=== PATIENT | female | born 1940 | race Caucasian/White ===

== ENCOUNTER → 2017-09-09 | Day surgery (SDC) | payer MEDICARE, OTHER ==
[~2017-09-09] VITALS: Ht 170.2 cm; Wt 127.0 kg
[~2017-09-09] MED LIST: ATOR80TA PO; ATOR80TA45 PO; CALCTAB80 PO; CHLORHEXIDINE GLUCONATE 2 % 1 PACK (2 CLOTHS) TOPICAL PRN; COLA100C5 PO; FERR28TA PO; FERR325T18 PO; FLON0.053; FURO40TA PO; GABA600T PO; GLIP10TA6 PO; GLUC10TA3 PO; GLUCTAB6 PO; HYDR-3533 PO; HYDR12.56 PO; INSULIN HUMAN REGULAR 1,000 UNITS/10 ML VIAL SQ PRN; LACTATED RINGER'S 1000 ML IV PRN; LEVEMIR SQ; LIDOCAINE HCL 1% PF 5 ML SYRINGE OTHER ONE; LISI-363 PO; MACR100C PO; MAGN400T2 PO; METF-324 PO; METOPROLOL TARTRATE 25 MG TAB PO PRN; MIDAZOLAM HCL 2 MG/2 ML VIAL ONE; MONT10 PO; MONT10TA4 PO; NOVOLOGP2 SQ; OMEP20TA39 PO; OMEP20TA93 PO; POTA-163 PO; POVIDONE IODINE 5% (ANTISEPSIS KIT) 4 APPLICATIONS EACH NARE PRN; PROPOFOL 200 MG/20 ML AMP IV ONE; SERT-129 PO; SERT-132 PO; SODIUM CHLORID 0.9% 500 ML IV PRN; XARE20TA PO; ZOVI200C24 PO; ceFAZolin 1,000 MG/NS 100 ML IV SCH
--- NOTE | 2017-09-09 08:56 | RADRPT ---
EXAM DATE: 09/09/2017 7:30 AM EDT AGE/SEX: 77 years / Female INDICATIONS: Pre op lithotripsy. CLINICAL DATA: This is the patient's initial encounter. Patient reports that signs and symptoms have been present for 1 day and indicates a pain score of 5/10. MEDICAL/SURGICAL HISTORY: None. None. COMPARISON: [facility] – [place], [place] ABDOMEN & PELVIS W CONTRAST, 04/22/2014. . FINDINGS: Limited anatomic detail due to the patient's body habitus. However, nonobstructed bowel gas pattern without evidence of pneumoperitoneum. Possible 6-7 mm calcification projecting over the left renal sh adow. I cannot definitively identify calcifications over the right shadow or along the expected cours e of the ureters. Degenerative changes in the thoracolumbar spine CONCLUSION: 1. Possible 6 to 7 mm calcification in the left renal collecting system. 2. Nonobstructed bowel gas pattern Electronically signed by: Nithin Terry MD 09/09/2017 8:55 AM EDT
[2017-09-09 09:02] LABS: AUTOMATED NEUTROPHIL # 5.7 TH/MM3 (1.8-7.7); BASOPHIL # 0.1 TH/MM3 (0-0.2); BASOPHIL % 0.9 % (0.0-2.0); EOSINOPHIL # 0.1 TH/MM3 (0-0.4); EOSINOPHIL % 1.5 % (0.0-4.0); HEMATOCRIT 35.7 % (35.0-46.0); HEMOGLOBIN 11.5 GM/DL (11.6-15.3); MEAN CELL VOLUME 77.5 FL (80.0-100.0); MEAN CORPUSCULAR HEMOGLOBIN 24.9 PG (27.0-34.0); MEAN CORPUSCULAR HGB CONC 32.2 % (32.0-36.0); MEAN PLATELET VOLUME 10.3 FL (7.0-11.0); MONO % 5.6 % (0.0-8.0); MONOCYTE # 0.5 TH/MM3 (0-0.9); PLATELET COUNT 229 TH/MM3 (150-450); RED BLOOD COUNT 4.61 MIL/MM3 (4.00-5.30); RED CELL DISTRIBUTION WIDTH 17.3 % (11.6-17.2); WHITE BLOOD COUNT 8.4 TH/MM3 (4.0-11.0)
[2017-09-09 10:00] LABS: OVALOCYTES 1+ (NORMAL)
--- NOTE | 2017-09-09 10:12 | PD.OP ---
Operative Report Date of Surgery: Sep 09, 2017 Preoperative Diagnosis: 1 cm left renal stone Postoperative Diagnosis: Same Procedure: Left extracorporeal shockwave lithotripsy Anesthesia: MAC Surgeon: Maged Rincon Agile Developer(s): None Resident Surgeon: None Operation and Findings: 77-year-old female who presents with findings of a 1 cm left renal stone who elected to undergo left extracorporeal shockwave lithotripsy. Risk and benefits were discussed preoperatively the patient is willing to proceed. Patient was brought to the operating room and identified by myself as Kath August. She was placed in the supine position on the operating table and received MAC anesthesia. Preprocedure antibiotics were administered. Under fluoroscopic and ultrasound imaging the stone was visualized in the left kidney. ESWL therapy commenced with the patient receiving a total of 2500 shocks. Good fragmentation stone was visualized under fluoroscopic imaging. She tolerated procedure well and was awoken and transferred recovery in stable condition. She will follow-up in the office and obtain a CT scan prior. Maged Rincon DO Sep 09, 2017 10:12
[2017-09-09 10:23] VITALS: BP 142/68; PULSE 104; RESP 20; TEMP 98; O2SAT 98
--- NOTE | 2017-09-09 20:17 | EKG ---
Date Performed: 09/09/2017 Time Performed: 07:12:10 PTAGE: 77 years EKG: ATRIAL FIBRILLATION RIGHT BUNDLE BRANCH BLOCK ABNORMAL ECG PREVIOUS TRACING : 06/16/2000 22.26 Compared to previous tracing, Sinus rhythm no longer present DOCTOR: Jose M Mohan Interpretating Date/Time 09/09/2017 20:16:21
== END | disposition home or self-care (01) ==
LOC: HSDC 06:31
PROVIDERS: ATTEND Urology
DX: N20.0 Calculus of kidney (principal); E11.9 Type 2 diabetes mellitus without complications; L03.115 Cellulitis of right lower limb; J45.909 Unspecified asthma, uncomplicated; I10 Essential (primary) hypertension; M19.90 Unspecified osteoarthritis, unspecified site; F41.8 Other specified anxiety disorders; Z01.810 Encounter for preprocedural cardiovascular examination; Z01.818 Encounter for other preprocedural examination
CPT/HCPCS: 00872; 50590; 74018; 85025; 93005; J2250; J3010; J7120

== ENCOUNTER 2018-01-18 12:50 | Observation (INO) ==
[2018-01-18] MEDS ORDERED: Aspirin 325 MG Tablet PO ONE (14:59)
[2018-01-18 15:23] LABS: Baso # (Auto) 0.1 th/mm3 (0.0-0.2); Baso % (Auto) 0.9 % (0.0-2.0); Eos # (Auto) 0.1 th/mm3 (0.0-0.4); Eos % (Auto) 1.3 % (0.0-4.0); Hematocrit 37.1 % (35.0-46.0); Hemoglobin 12.2 gm/dL (11.6-15.3); Lymph # (Auto) 2.8 th/mm3 (1.0-4.8); Lymph % (Auto) 28.3 % (9.0-44.0); Mean Corpuscular HGB Conc 32.9 % (32.0-36.0); Mean Corpuscular Hemoglobin 26.6 pg (27.0-34.0); Mean Corpuscular Volume 80.7 fL (80.0-100.0); Mono # (Auto) 0.4 th/mm3 (0.0-0.9); Mono % (Auto) 4.4 % (0.0-8.0); Neut # (Auto) 6.5 th/mm3 (1.8-7.7); Neut % (Auto) 65.1 % (16.0-70.0); Platelet Count 226 th/mm3 (150-450)
[2018-01-18 15:34] LABS: Activated Partial Thrombo Time 29.5 sec (23.4-31.7); Prothrombin Time 10.6 sec (9.8-11.6)
--- NOTE | 2018-01-18 15:50 | ED ---
HPI General Chief Complaint: Chest Pain Stated Complaint: Medical Time Seen by Provider: 01/18/18 14:44 Source: patient and EMS Mode of arrival: EMS Limitations: no limitations History of Present Illness HPI narrative: 77-year-old female that presents to the ED via [facility] for evaluation of chest pain. Patient had an episode of chest pain today [place] in her jail. Per patient she was in her wheelchair when the chest pain started. Lasted about 10 minutes. [place] like a pressure. Denies any history of ACS but does have a history of CHF and atrial fibrillation. Takes medications for this. Per patient she is currently on a jail chronically secondary to inability to care of herself secondary to CHF and arthritis of her legs. She states that she has not had any more chest pain. She did had another episode but per [facility] and per patient since being here about an hour ago patient has been fine. No nitroglycerin given. Patient does take Xarelto for the A. fib to prevent stroke. Patient did not take aspirin today. Denies any abdominal pain. No symptoms at this time. No numbness, tingling, weakness. In no distress at this time. No shortness of breath at this time. Per patient the pain felt like a pressure. She states that she believes that she had a stress test about a year ago but she is not sure. Per patient she did not get it at this area. Per patient she currently has no tax agent. Does state to having chronic hematuria since August after having a lithotripsy to get kidney stones removed. Denies any other medical issues at this time. Related Data Home Medications Medication Instructions Recorded Confirmed acyclovir 1 tab PO DAILY 01/18/18 01/18/18 atorvastatin 80 mg PO DAILY 01/18/18 01/18/18 cetirizine 10 mg PO DAILY 01/18/18 01/18/18 docusate sodium 100 mg PO DAILY 01/18/18 01/18/18 ferrous sulfate 325 mg PO DAILY 01/18/18 01/18/18 furosemide 40 mg PO DAILY 01/18/18 01/18/18 gabapentin 600 mg PO BID 01/18/18 01/18/18 glipizide 10 mg PO BID 01/18/18 01/18/18 insulin detemir U-100 [Levemir 20 units SUBCUT DAILY 01/18/18 01/18/18 U-100 Insulin] magnesium oxide 400 mg PO DAILY 01/18/18 01/18/18 montelukast 10 mg PO QPM 01/18/18 01/18/18 olopatadine 1 drp OPHTHALMIC (EYE) DAILY 01/18/18 01/18/18 polyvinyl alcohol [LiquiTears] 1 drp OPHTHALMIC (EYE) TID-QID 01/18/18 01/18/18 potassium chloride 20 meq PO BID 01/18/18 01/18/18 rivaroxaban [Xarelto] 20 mg PO QPM 01/18/18 01/18/18 sertraline 100 mg PO BID 01/18/18 01/18/18 white petrolatum-mineral oil 1 applic OPHTHALMIC (EYE) DAILY 01/18/18 01/18/18 [Puralube] Allergies Allergy/AdvReac Type Severity Reaction Status Date / Time codeine AdvReac Unknown Unverified 09/09/17 07:47 metformin AdvReac Unknown Diarrhea Verified 09/09/17 07:47 Review of Systems ROS: all other systems reviewed are negative [facility] Medical History Medical History Afib (Acute) Anemia (Acute) CHF (congestive heart failure) (Acute) COPD (chronic obstructive pulmonary disease) (Acute) Cellulitis (Acute) Chest pain (Acute) Diabetes (Acute) Edema (Acute) Herpes simplex viral infection (Acute) Hypertension (Acute) Obesity (Acute) Respiratory failure (Acute) Social History Social History Substance History: No History of Abuse Smoking Status: Former smoker How Often Do You Have a Drink Containing Alcohol: Never Recent Travel in [facility] within the Last 8 Weeks: No Recent Out of Country Travel within the Last 8 Weeks: No Immunization History Tetanus Immunization: <5 Years Exam Narrative Exam Narrative: GENERAL: Well-appearing SKIN: Focused skin assessment warm/dry. HEAD: Atraumatic. Normocephalic. EYES: Pupils equal and round. No scleral icterus. No injection or drainage. ENT: No nasal bleeding or discharge. Mucous membranes pink and moist. Tongue is midline. No uvula deviation. NECK: Trachea midline. No JVD. CARDIOVASCULAR: Regular rate and rhythm. No murmur appreciated. RESPIRATORY: No accessory muscle use. Clear to auscultation. Breath sounds equal bilaterally. GASTROINTESTINAL: Abdomen soft, non-tender, nondistended. Hepatic and splenic margins not palpable. MUSCULOSKELETAL: No obvious deformities. No clubbing. No cyanosis. No edema. Full range of motion of the upper and lower extremities bilaterally. 2+ pulses bilaterally. NEUROLOGICAL: Awake and alert. No obvious cranial nerve deficits. Motor grossly within normal limits. Normal speech. PSYCHIATRIC: Appropriate mood and affect; insight and judgment normal. Course Initial Documented Vital Signs Temperature 97.6 F 01/18/18 14:52 Pulse Rate 69 01/18/18 14:52 Respiratory Rate 22 01/18/18 14:52 Blood Pressure 148/82 H 01/18/18 14:52 Pulse Oximetry 97 01/18/18 14:52 Last Documented Vital Signs Temperature 97.6 F 01/18/18 14:52 Pulse Rate 69 01/18/18 14:52 Respiratory Rate 22 01/18/18 14:52 Blood Pressure 148/82 H 01/18/18 14:52 Pulse Oximetry 100 01/18/18 14:59 Medical Decision Making AMY Attestation AMY supervised visit: Yes Attestation: I, Dr. Hernandez, have reviewed the advance practice practitioner's documentation and am in agreement, met with the patient face to face, made the diagnosis, and the medical decision making was done by me. See his note for further details. This is a 77-year-old female with history of A. fib on Eliquis, sent in from her jail for evaluation of an episode of chest pain. Patient had substernal chest pressure that lasted for approximately 10 minutes, then resolved. Here in the emergency department she is chest pain-free and is resting comfortably. EKG shows a right bundle branch block which is old, no acute signs of ischemia. CBC and chemistry were reviewed. Cardiac enzymes are negative. She will be admitted to the chest pain center for further cardiac evaluation. MDM Narrative Medical decision making narrative: 77-year-old female that presents to the ED for evaluation of chest pain. Patient was properly examined and was found signs and symptoms concerning for chest pain. Labs and imaging were ordered. Initial EKG did not show any sign of ST elevation. Labs and imaging were essentially unremarkable at this time. Conditions admission to chest pain center for further workup of the chest pain. Patient agrees. Patient was admitted to chest pain center by me. My attending Dr Hernandez evaluated the patient with me and agrees with plan. Medical Screen Exam Complete: Yes Emergency Medical Condition: Yes Differential Diagnosis Differential Diagnosis: Chest pain versus typical chest pain versus ACS versus CHF Medical Records Medical records reviewed: Yes I reviewed the patient's medical records. Lab Data Lab results reviewed: Yes I reviewed the patient's lab results. Lab results narrative: troponin and CKMB negative Result diagrams: 01/18/18 15:10 01/18/18 15:10 Lab Results 01/18/18 01/18/18 01/18/18 Range/Units 15:10 15:10 15:10 WBC 10.0 (4.0-11.0) th/mm3 RBC 4.60 (4.00-5.30) mil/mm3 Hgb 12.2 (11.6-15.3) gm/dL Hct 37.1 (35.0-46.0) % MCV 80.7 (80.0-100.0) fL MCH 26.6 L (27.0-34.0) pg MCHC 32.9 (32.0-36.0) % RDW 17.0 (11.6-17.2) % Plt Count 226 (150-450) th/mm3 MPV 10.0 (7.0-11.0) fL Neut % (Auto) 65.1 (16.0-70.0) % Lymph % (Auto) 28.3 (9.0-44.0) % White % (Auto) 4.4 (0.0-8.0) % Eos % (Auto) 1.3 (0.0-4.0) % Baso % (Auto) 0.9 (0.0-2.0) % Neut # (Auto) 6.5 (1.8-7.7) th/mm3 Lymph # (Auto) 2.8 (1.0-4.8) th/mm3 White # (Auto) 0.4 (0.0-0.9) th/mm3 Eos # (Auto) 0.1 (0.0-0.4) th/mm3 Baso # (Auto) 0.1 (0.0-0.2) th/mm3 WBC Differential . Differential Comment Auto diff final PT 10.6 (9.8-11.6) sec INR 1.0 Ratio APTT 29.5 (23.4-31.7) sec Sodium 140 (136-145) meq/L Potassium 4.3 (3.5-5.1) meq/L Chloride 103 (98-107) meq/L Carbon Dioxide 26.8 (21.0-32.0) meq/L Anion Gap 10 (5-15) meq/L BUN 14 (7-18) mg/dL Creatinine 0.79 (0.50-1.00) mg/dL Estimated GFR 71 L (>89) mL/min Random Glucose 110 H (74-106) mg/dL Calcium 8.9 (8.5-10.1) mg/dL Magnesium 2.0 (1.5-2.5) mg/dL Total Bilirubin 0.3 (0.2-1.0) mg/dL AST 20 (15-37) U/L ALT 19 (10-53) U/L Alkaline Phosphatase 112 (45-117) U/L Total Creatine Kinase 40 (26-192) U/L Troponin I Less than 0.02 L (0.02-0.05) ng/mL B-Natriuretic Peptide (0-100) pg/mL Total Protein 8.0 (6.4-8.2) g/dL Albumin 3.5 (3.4-5.0) g/dL Lipase 87 (73-393) U/L 01/18/18 Range/Units 15:10 WBC (4.0-11.0) th/mm3 RBC (4.00-5.30) mil/mm3 Hgb (11.6-15.3) gm/dL Hct (35.0-46.0) % MCV (80.0-100.0) fL MCH (27.0-34.0) pg MCHC (32.0-36.0) % RDW (11.6-17.2) % Plt Count (150-450) th/mm3 MPV (7.0-11.0) fL Neut % (Auto) (16.0-70.0) % Lymph % (Auto) (9.0-44.0) % White % (Auto) (0.0-8.0) % Eos % (Auto) (0.0-4.0) % Baso % (Auto) (0.0-2.0) % Neut # (Auto) (1.8-7.7) th/mm3 Lymph # (Auto) (1.0-4.8) th/mm3 White # (Auto) (0.0-0.9) th/mm3 Eos # (Auto) (0.0-0.4) th/mm3 Baso # (Auto) (0.0-0.2) th/mm3 WBC Differential Differential Comment PT (9.8-11.6) sec INR Ratio APTT (23.4-31.7) sec Sodium (136-145) meq/L Potassium (3.5-5.1) meq/L Chloride (98-107) meq/L Carbon Dioxide (21.0-32.0) meq/L Anion Gap (5-15) meq/L BUN (7-18) mg/dL Creatinine (0.50-1.00) mg/dL Estimated GFR (>89) mL/min Random Glucose (74-106) mg/dL Calcium (8.5-10.1) mg/dL Magnesium (1.5-2.5) mg/dL Total Bilirubin (0.2-1.0) mg/dL AST (15-37) U/L ALT (10-53) U/L Alkaline Phosphatase (45-117) U/L Total Creatine Kinase (26-192) U/L Troponin I (0.02-0.05) ng/mL B-Natriuretic Peptide 76 (0-100) pg/mL Total Protein (6.4-8.2) g/dL Albumin (3.4-5.0) g/dL Lipase (73-393) U/L Imaging Data Attestation: I personally reviewed and interpreted this imaging study as follows : Radiologist's impression: Chest X-Ray 01/18/18 16:28 CONCLUSION: No evidence of acute cardiopulmonary process. ECG Data Attestation: I personally reviewed and interpreted this ECG as follows: Prior ECG tracings: available for review Interpretation: EKG shows sinus rhythm with no sign of acute ischemia or arrhythmia. No changes from prior in August. Discharge Plan Discharge Disposition Patient Disposition: 30 Still Patient Discharge Condition Condition: Stable Discharge Details Diagnosis: Chest pain Physicians Team ED Provider: Al Hernandez ED Midlevel Provider: Dash Guzman Primary Care Provider: Ge Bhatia V Attending Provider: Adriel Chao Status ED Status: Admitted Observation Patient
[2018-01-18 15:59] LABS: Alanine Aminotransferase 19 U/L (10-53); Albumin 3.5 g/dL (3.4-5.0); Anion Gap 10 meq/L (5-15); Aspartate Aminotransferase 20 U/L (15-37); Blood Urea Nitrogen 14 mg/dL (7-18); Calcium 8.9 mg/dL (8.5-10.1); Carbon Dioxide 26.8 meq/L (21.0-32.0); Chloride 103 meq/L (98-107); Glomerular Filtration Rate 71 mL/min (>89); Glucose,Random 110 mg/dL (74-106); Lipase 87 U/L (73-393); Potassium 4.3 meq/L (3.5-5.1); Sodium 140 meq/L (136-145)
[2018-01-18 16:00] LABS: Alkaline Phosphatase 112 U/L (45-117)
[2018-01-18 16:02] LABS: Creatine Kinase 40 U/L (26-192)
[2018-01-18] MEDS ORDERED: Acetaminophen 500 MG Tablet PO PRN (17:05)
--- NOTE | 2018-01-18 17:27 | XR ---
EXAM DATE: 01/18/2018 4:58 PM EST AGE/SEX: 77 years / Female INDICATIONS: Chest pain. CLINICAL DATA: This is the patient's initial encounter. Patient reports that signs and symptoms have been present for 1 day and indicates a pain score of 5/10. MEDICAL/SURGICAL HISTORY: None. None. COMPARISON: No prior exams available for comparison. FINDINGS: A single AP view of the chest demonstrates the lungs to be symmetrically aerated without evidence of mass, infiltrate or effusion. The cardiomediastinal contours are unremarkable. Osseous structures a re intact. CONCLUSION: No evidence of acute cardiopulmonary process. Electronically signed by: Gerald Ma MD 01/18/2018 5:26 PM EST
[2018-01-18 18:46] LABS: Creatine Kinase 48 U/L (26-192)
--- NOTE | 2018-01-18 19:05 | ECG ---
Date Performed: 01/18/2018 Time Performed: 14:52:48 PTAGE: 77 years EKG: ATRIAL FIBRILLATION BORDERLINE LEFT AXIS DEVIATION RIGHT BUNDLE BRANCH BLOCK ABNORMAL ECG N o significant change from prior electrocardiogram. PREVIOUS TRACING : 09/09/2017 07.12 DOCTOR: Duane Chou Interpretating Date/Time 01/18/2018 19:04:42
[2018-01-18 22:36] LABS: Creatine Kinase 145 U/L (26-192)
--- NOTE | 2018-01-19 05:19 | ECG ---
Date Performed: 01/18/2018 Time Performed: 18:19:56 PTAGE: 77 years EKG: ATRIAL FIBRILLATION RIGHT BUNDLE BRANCH BLOCK ABNORMAL ECG No significant change from prior electrocardiogram. PREVIOUS TRACING : 01/18/2018 14.52 DOCTOR: Duane Chou Interpretating Date/Time 01/19/2018 05:19:12
--- NOTE | 2018-01-19 08:28 | P.HPCA ---
History of Present Illness Primary Care Physician: Ge Bhatia MD Chief Complaint: Chest pain History of Present Illness: This is a 78-year-old female with stated history of congestive heart failure, H fibrillation, hyperlipidemia, hypertension, and diabetes that presents to ED via [facility] from [facility] with complaint of chest discomfort that lasted about 10 minutes. Nothing to worsen or improve the symptoms when it was present. Discomfort was center left. Did not radiate. It began yesterday. The discomfort has not recurred. Described as a pressure. Cannot recall being short of breath, nauseous, diaphoretic. States she has had stress test before. She is followed by a user support analyst in [place]. Believes her last stress test was a little more than a year ago. Cannot recall ever having a cardiac catheterization. There is family history of CAD. She is a non-smoker. History of congestive heart failure, atrial relation, hypertension, hyperlipidemia, diabetes. Denies known coronary artery disease. - Diagnosis (1) Chest pain (2) Atrial fibrillation (3) Hyperlipidemia (4) Diabetes (5) Hypertension (6) CHF (congestive heart failure) Review of Systems General: Patient denies fevers, chills, and recent travel. HEENT: Patient denies headache, sore throat, difficulty swallowing. Cardiovascular: Has the chest discomfort as mentioned above. Denies sensation of heart beating rapidly or irregularly. No syncope. Denies diaphoresis. Respiratory: Denies shortness of breath or inspirational chest discomfort. Denies coughing wheezing or hemoptysis. GI: Patient denies nausea, vomiting, diarrhea, abdominal pain, bloody stools. Musculoskeletal: Patient denies joint pain or edema. Denies calf pain or edema. Neurovascular: Patient denies numbness, tingling, weakness in extremities. Denies headache. Endocrine: Denies polyuria and polydipsia. Hematologic: Denies easy bruising. Skin: Denies rash or itching. PMFSH - History History Provided By: Patient - Medical History Medical History: Medical History (Last Reviewed 01/18/18 @ 15:48 by CHRISTIANO Vogt) Afib Anemia CHF (congestive heart failure) COPD (chronic obstructive pulmonary disease) Cellulitis Chest pain Diabetes Edema Herpes simplex viral infection Hypertension Obesity Respiratory failure - Tobacco History Second Hand Smoke Exposure: No Smoking Status: Former smoker - Alcohol History How Often Do You Have a Drink Containing Alcohol: Never - Substance Use History Substance History: No History of Abuse - Travel History Recent Travel in the [place] Within the Last 8 Weeks: No Recent Travel Out of the Country Within the Last 8 Weeks: No - Immunization History Tetanus Immunization: <5 Years Medications and Allergies Active Medications: Active Medications Acetaminophen (Tylenol) 500 mg PO Q4H PRN PRN Reason: HEADACHE Hydrocodone Bitart/Acetaminophen ([place] 7.5/325) 1 tab PO Q4H PRN PRN Reason: PAIN SCALE 1 TO 7 Last Admin: 01/19/18 04:24 Dose: 1 tab Atorvastatin Calcium (Lipitor) 80 mg PO DAILY [facility] Furosemide (Lasix) 40 mg PO DAILY [facility] Non-Formulary Medication (Gabapentin [Gabapentin]) 600 mg PO BID [facility] Non-Formulary Medication (Magnesium Oxide [Magnesium Oxide]) 400 mg PO DAILY [facility] Non-Formulary Medication (Potassium Chloride [Potassium Chloride]) 20 meq PO BID [facility] Ondansetron HCl (Zofran Inj) 4 mg IV.PUSH Q6H PRN PRN Reason: NAUSEA Rivaroxaban (Xarelto) 20 mg PO QPM [facility] Sodium Chloride (Ns Flush) 2 ml IV.FLUSH UNSCH PRN PRN Reason: FLUSH AFTER USING IV ACCESS Sodium Chloride (Ns Flush) 2 ml IV.FLUSH PRN PRN PRN Reason: FLUSH AFTER USING IV ACCESS Sodium Chloride (Ns Flush) 2 ml IV.FLUSH BID [facility] Last Admin: 01/18/18 21:38 Dose: 2 ml Allergies Allergy/AdvReac Type Severity Reaction Status Date / Time codeine AdvReac Unknown Unverified 09/09/17 07:47 metformin AdvReac Unknown Diarrhea Verified 09/09/17 07:47 Home Medications Medication Instructions Recorded Confirmed Type acyclovir 1 tab PO DAILY 01/18/18 01/18/18 History atorvastatin 80 mg PO DAILY 01/18/18 01/18/18 History cetirizine 10 mg PO DAILY 01/18/18 01/18/18 History docusate sodium 100 mg PO DAILY 01/18/18 01/18/18 History ferrous sulfate 325 mg PO DAILY 01/18/18 01/18/18 History furosemide 40 mg PO DAILY 01/18/18 01/18/18 History gabapentin 600 mg PO BID 01/18/18 01/18/18 History glipizide 10 mg PO BID 01/18/18 01/18/18 History insulin detemir U-100 [Levemir 20 units SUBCUT DAILY 01/18/18 01/18/18 History U-100 Insulin] magnesium oxide 400 mg PO DAILY 01/18/18 01/18/18 History montelukast 10 mg PO QPM 01/18/18 01/18/18 History olopatadine 1 drp OPHTHALMIC (EYE) DAILY 01/18/18 01/18/18 History polyvinyl alcohol [LiquiTears] 1 drp OPHTHALMIC (EYE) TID-QID 01/18/18 01/18/18 History potassium chloride 20 meq PO BID 01/18/18 01/18/18 History rivaroxaban [Xarelto] 20 mg PO QPM 01/18/18 01/18/18 History sertraline 100 mg PO BID 01/18/18 01/18/18 History white petrolatum-mineral oil 1 applic OPHTHALMIC (EYE) DAILY 01/18/18 01/18/18 History [Puralube] Exam Vital signs: Vital Signs 01/18/18 14:52 01/18/18 14:59 01/18/18 20:00 Temperature 97.6 F 98.0 F Pulse Rate 69 85 Respiratory Rate 22 16 Blood Pressure 148/82 H 139/75 Pulse Oximetry 97 100 96 01/18/18 21:30 01/18/18 21:58 01/19/18 00:00 Temperature 98.1 F Pulse Rate 89 103 H Respiratory Rate 21 17 Blood Pressure 142/84 H Pulse Oximetry 95 01/19/18 03:45 01/19/18 04:45 Temperature 97.8 F Pulse Rate 106 H Respiratory Rate 20 21 Blood Pressure 118/67 Pulse Oximetry 93 L Intake & Output 01/18/18 01/19/18 01/19/18 18:59 06:59 18:59 Intake Total 500 / 500 600 / 600 Output Total 800 / 800 Balance 500 / 500 -200 / -200 Weight 136.078 kg 136.07 kg Intake: Oral 500 / 500 600 / 600 Output: Urine 800 / 800 Other: # Voids 2 Weight On Admission 136.07 kg Narrative: GENERAL: This is a well-nourished, well-developed patient, in no apparent distress. Patient speaks in clear complete sentences. Patient is pleasant. HEENT: Head is atraumatic and normocephalic. Neck is supple without lymphadenopathy and trachea is midline. No JVD or carotid bruits. CARDIOVASCULAR: Irregularly irregular rate and rhythm without murmurs, gallops, or rubs. RESPIRATORY: Clear to auscultation. Breath sounds equal bilaterally. No wheezes , rales, or rhonchi. Chest wall is nontender. No use of accessory muscles. GASTROINTESTINAL: Abdomen is nontender, nondistended. Abdomen soft. No obvious pulsatile mass or bruit. No CVA tenderness. Strong femoral pulses bilaterally. Normal bowel sounds in all quadrants. MUSCULOSKELETAL: Patient is moving upper and lower extremities freely. No calf tenderness or edema, no Homans sign. Strong pulses in upper and lower extremities. NEUROLOGICAL: Patient is alert and oriented. Cranial nerves 2-12 are grossly intact. No focal deficits and speech is clear. SKIN: No rash and turgor is normal. Results 01/18/18 15:10 01/18/18 15:10 Cardiac Enzymes 01/18/18 01/18/18 01/18/18 Range/Units 15:10 15:10 18:01 AST 20 (15-37) U/L Troponin I Less than 0.02 L Less than 0.02 L (0.02-0.05) ng/mL B-Natriuretic Peptide 76 (0-100) pg/mL 01/18/18 Range/Units 21:35 AST (15-37) U/L Troponin I Less than 0.02 L (0.02-0.05) ng/mL B-Natriuretic Peptide (0-100) pg/mL Coagulation 01/18/18 01/18/18 Range/Units 15:10 15:10 PT 10.6 (9.8-11.6) sec APTT 29.5 (23.4-31.7) sec B-Natriuretic Peptide 76 (0-100) pg/mL CBC 01/18/18 Range/Units 15:10 WBC 10.0 (4.0-11.0) th/mm3 RBC 4.60 (4.00-5.30) mil/mm3 Hgb 12.2 (11.6-15.3) gm/dL Hct 37.1 (35.0-46.0) % Plt Count 226 (150-450) th/mm3 Neut # (Auto) 6.5 (1.8-7.7) th/mm3 Lymph # (Auto) 2.8 (1.0-4.8) th/mm3 [place] # (Auto) 0.4 (0.0-0.9) th/mm3 Eos # (Auto) 0.1 (0.0-0.4) th/mm3 Baso # (Auto) 0.1 (0.0-0.2) th/mm3 Comprehensive Metabolic Panel 01/18/18 Range/Units 15:10 Sodium 140 (136-145) meq/L Potassium 4.3 (3.5-5.1) meq/L Chloride 103 (98-107) meq/L Carbon Dioxide 26.8 (21.0-32.0) meq/L BUN 14 (7-18) mg/dL Creatinine 0.79 (0.50-1.00) mg/dL Calcium 8.9 (8.5-10.1) mg/dL AST 20 (15-37) U/L ALT 19 (10-53) U/L Alkaline Phosphatase 112 (45-117) U/L Total Protein 8.0 (6.4-8.2) g/dL Albumin 3.5 (3.4-5.0) g/dL Intake and Output 01/18/18 01/19/18 01/19/18 22:59 06:59 14:59 Intake Total 500 / 500 600 / 600 Output Total 800 / 800 Balance 500 / 500 -200 / -200 Intake: Oral 500 / 500 600 / 600 Output: Urine 800 / 800 Other: # Voids 2 Weight 136.07 kg Weight On Admission 136.07 kg - Imaging and Cardiology Imaging: Impressions Chest X-Ray 01/18/18 16:28 CONCLUSION: No evidence of acute cardiopulmonary process. EKG interpretations - EKG EKG shows: atrial fibrillation (EKGs are atrial fibrillation, rate controlled. Right bundle branch block.) Caprini VTE Risk Assessment Caprini VTE Risk Assessment: Moderate/High Risk (score >= 2) Caprini Risk Assessment Model: Point Value = 1 Point Value = 2 Point Value = 3 Point Value = 5 Age 41-60 Minor surgery BMI > 25 kg/m2 Swollen legs Varicose veins or History of unexplained or recurrent spontaneous Oral contraceptives or hormone replacement Sepsis (< 1 month) Serious lung disease, including pneumonia (< 1 month) Abnormal pulmonary function Acute myocardial infarction Congestive heart failure (< 1 month) History of inflammatory bowel disease Medical patient at bed rest Age 61-74 Arthroscopic surgery Major open surgery (> 45 min) Laparoscopic surgery (> 45 min) Malignancy Confined to bed (> 72 hours) Immobilizing plaster cast Central venous access Age >= 75 History of VTE Family history of VTE Factor V Leiden Prothrombin [id number] Lupus anticoagulant Anticardiolipin antibodies Elevated serum homocysteine Heparin-induced thrombocytopenia Other congenital or acquired thrombophilia Stroke (< 1 month) Elective arthroplasty Hip, pelvis, or leg fracture Acute spinal cord injury (< 1 month) Prophylaxis Regimen: Total Risk Factor Score Risk Level Prophylaxis Regimen 0-1 Low Early ambulation 2 Moderate Order ONE of the following: *Sequential Compression Device (SCD) *Heparin 5000 units SQ BID 3-4 Higher Order ONE of the following medications: *Heparin 5000 units SQ TID *Enoxaparin/Lovenox 40 mg SQ daily (WT < 150 kg, CrCl > 30 mL/min) *Enoxaparin/Lovenox 30 mg SQ daily (WT < 150 kg, CrCl > 10-29 mL/min) *Enoxaparin/Lovenox 30 mg SQ BID (WT < 150 kg, CrCl > 30 mL/min) AND/OR *Sequential Compression Device (SCD) 5 or more Highest Order ONE of the following medications: *Heparin 5000 units SQ TID (Preferred with Epidurals) *Enoxaparin/Lovenox 40 mg SQ daily (WT < 150 kg, CrCl > 30 mL/min) *Enoxaparin/Lovenox 30 mg SQ daily (WT < 150 kg, CrCl > 10-29 mL/min) *Enoxaparin/Lovenox 30 mg SQ BID (WT < 150 kg, CrCl > 30 mL/min) AND *Sequential Compression Device (SCD) Assessment and Plan - Assessment (1) Chest pain Code(s): R07.9 - Chest pain, unspecified Status: Acute (2) Atrial fibrillation Code(s): I48.91 - Unspecified atrial fibrillation Status: Acute (3) Hyperlipidemia Code(s): E78.5 - Hyperlipidemia, unspecified Status: Acute (4) Diabetes Code(s): E11.9 - Type 2 diabetes mellitus without complications Status: Acute (5) Hypertension Code(s): I10 - Essential (primary) hypertension Status: Acute (6) CHF (congestive heart failure) Code(s): I50.9 - Heart failure, unspecified Status: Acute - Plan * Chest pain: Patient has had serial cardiac enzymes and EKGs for ruling out purposes. She was seen by Dr. Acuna of cardiology in the chest pain center. She will undergo a Lexiscan. She will be discharged home if stress test is nonischemic with instructions to follow-up with her PCP and user support analyst. Return to ED for interval issues. * Atrial fibrillation: Continue her current treatment. She is on Xarelto. * Congestive heart failure: Patient states she has history congestive heart failure. Does not know results of recent echo. Continue her treatment and follow-up with her user support analyst. * Hypertension: Continue medication. * Hyperlipidemia: Continue medication. * Diabetes: Hold her medication as she is n.p.o. Have sliding scale and some coverage as needed. Follow diabetic diet afterwards. Patient is stable at this time. She is agreeable to this plan. H&P: Quality - VTE Deep Vein Thrombosis/Pulmonary Embolism Present on Admission: No (1) Chest pain Qualifiers: Chest pain type: unspecified Qualified Code(s): R07.9 - Chest pain, unspecified
[2018-01-19 08:56] VITALS: PULSE 91; RESP 18
[2018-01-19] MEDS ORDERED: Furosemide 40 MG Tablet PO SCH (09:00)
[2018-01-19] MEDS ORDERED: Regadenoson Inj 0.4 MG/5 ML Syringe IV.PUSH ONE (09:07)
[2018-01-19] MEDS ORDERED: Magnesium Oxide 400 MG Tablet PO SCH (10:15)
[2018-01-19] MEDS ORDERED: Gabapentin 300 MG Capsule PO SCH (10:15)
--- NOTE | 2018-01-19 10:39 | NM ---
EXAM DATE: 01/19/2018 10:26 AM EST AGE/SEX: 78 years / Female INDICATIONS:Angina. Atrial fibrillation Substernal chest pain. CLINICAL DATA: This is the patient's initial encounter. Patient reports that signs and symptoms have been present for 1 day and indicates a pain score of 6/10. MEDICAL/SURGICAL HISTORY: Chronic obstructive pulmonary disease. Congestive heart failure. Hy pertension. Diabetes. None. COMPARISON: No prior exams available for comparison. DOSE: 11.0 mCi Tc 99m Myoview at rest 35.0 mCi [id number] at stress 0.4 mg Lexiscan STRESS SYMPTOMS: Shortness of breath. EJECTION FRACTION: 62 % TECHNIQUE: The patient underwent pharmacologic stress with infusion of prescribed dose. Continuous ECG tracing was monitored during stress. Gated SPECT imaging was performed after stress and conventi onal SPECT imaging was performed at rest. The examination was performed on a SPECT/CT scanner, both attenuation and non-corrected datasets were reviewed. FINDINGS: Distribution: The maximum perfused segment at stress is in the anterolateral wall. Perfusion Study: The pattern of perfusion at stress demonstrates reduction in perfusion to the low inferior wall which demonstrates redistribution the rest characteristic of mild ischemia. . Gated Study: There are intact wall motion and wall thickening without hypokinetic or dyskinetic segm ents. The ejection fraction is calculated at 62%. RISK CATEGORY: Intermediate (1-3 % Annual Mortality Rate) CONCLUSION: 1. Mild ischemia lobe inferior wall. Electronically signed by: Shivam Fulton MD 01/19/2018 10:38 AM EST
[2018-01-19 11:49] VITALS: BP 127/67; TEMP 97.7; O2SAT 96
[2018-01-19] MEDS ORDERED: Insulin NovoLIN Regular Correctional Sugar Inj SQ SCH (12:00)
[2018-01-19] MEDS ORDERED: Metoprolol Tartrate 25 MG Tablet PO SCH (16:45)
--- NOTE | 2018-01-19 16:51 | TR ---
Date Performed: 01/19/2018 Time Performed: 09:15:27 DOCTOR: Alison Acuna DRUG LIST: CLINICAL HISTORY: CHEST PAIN REASON FOR TEST: CHEST PAIN REASON FOR ENDING: OBSERVATION: CONCLUSION: Lexiscan stress test was performed under standard four minute protocol. Radionuclid e was injected one minute prior to ending the test. No electrocardiographic abormalities were present to suggest ischemia. Nuclear imaging and interpretation are pending. COMMENTS: Lexiscan stress test was performed under standard four minute protocol. Radionuclide was injected one minute prior to ending the test. No electrocardiographic abormalities were present t o suggest ischemia. Nuclear imaging and interpretation are pending.
--- NOTE | 2018-01-19 16:52 | ECG ---
Date Performed: 01/18/2018 Time Performed: 22:03:54 PTAGE: 77 years EKG: ATRIAL FIBRILLATION BORDERLINE LEFT AXIS DEVIATION RIGHT BUNDLE BRANCH BLOCK ABNORMAL ECG S mary beth PREVIOUS TRACING , no significant change noted PREVIOUS TRACIN01/18/2018 18.19 DOCTOR: Alison Acuna Interpretating Date/Time 01/19/2018 16:50:24
[2018-01-19] MEDS ORDERED: Rivaroxaban 20 MG Tablet PO SCH (18:00)
== END 2018-01-19 18:59 ==
LOC: NEDA 12:50 → NEPE 12:50 → NEPFCDU 17:51
PROVIDERS: ADMIT Internal Medicine Cardiovascular Disease; ATTEND Internal Medicine Cardiovascular Disease